=== PATIENT | female | born 2000 | race Caucasian/White ===

== ENCOUNTER 2025-02-20 13:21 | Inpatient (IN) | payer OTHER ==
[~2025-02-20] VITALS: Ht 167.6 cm; Wt 69.4 kg
[2025-02-20] MEDS ORDERED: IOHEXOL-350 100 ML VIAL IV ONE (14:37)
[2025-02-20] MEDS ORDERED: IV NS 0.9% 250 ML IV ONE (14:38)
[2025-02-20 14:57] LABS: PLATELET COUNT (AUTO) 205 K/uL (150-450); RED BLOOD CELL COUNT(AUTO) 2.82 MIL/uL (4.0-5.2); RED CELL DISTRIBUTION WIDTH 14.3 % (11.5-15.0); WHITE BLOOD COUNT (AUTO) 7.0 K/uL (4.3-11.0)
[2025-02-20] MEDS: IV NS 0.9% 1,000 ML BAG IV ONE (14:59)
[2025-02-20 15:05] LABS: CALCIUM, SERUM 8.0 mg/dL (8.5-10.1); CREATININE 0.6 mg/dL (0.6-1.3); SODIUM SERUM 139.0 mmol/L (136-145); UREA NITROGEN, BLOOD 8.0 mg/dL (7-18)
[2025-02-20 15:10] LABS: INR 1.04 (0.91-1.10)
[2025-02-20 15:16] LABS: PREGNANCY TEST SERUM QUAN 0 mIU/mL (0-6)
[2025-02-20 15:18] LABS: ALCOHOL, BLOOD < 3 mg/dL (0-10)
[2025-02-20 17:15] VITALS: BP 96/71; TEMP 97.5; O2SAT 99
[2025-02-20] MEDS ORDERED: BUPR1FIL SL (18:11)
[2025-02-20] MEDS ORDERED: FOLI0.4T6 PO (18:11)
[2025-02-20] MEDS ORDERED: MIRT-90 PO (18:11)
[2025-02-20] MEDS ORDERED: THIA100T88 PO (18:11)
[2025-02-20] MEDS ORDERED: ONDA-97 PO (18:11)
[2025-02-20] MEDS ORDERED: AMOX500C2 PO (18:11)
[2025-02-20] MEDS ORDERED: GABA300C PO (18:11)
[2025-02-20] MEDS ORDERED: DIAZ10TA4 PO (18:11)
[2025-02-20] MEDS ORDERED: ZIPR40CA2 PO (18:11)
[2025-02-20] MEDS ORDERED: MULT-31 PO (18:11)
[2025-02-20] MEDS ORDERED: IBUP-1955 PO (18:11)
[2025-02-20] MEDS ORDERED: FAMO20TA8 PO (18:11)
[2025-02-20] MEDS ORDERED: METF-440 PO (18:11)
[2025-02-20] MEDS ORDERED: QUET50TA PO (18:11)
[2025-02-20] MEDS ORDERED: NAPR-431 PO (18:11)
[2025-02-20] MEDS ORDERED: CYCL5TAB PO (18:11)
[2025-02-20] MEDS ORDERED: CLON0.1T PO (18:11)
[2025-02-20] MEDS ORDERED: CHLO473M5 PO (18:11)
[2025-02-20] MEDS ORDERED: FLUO20CA42 PO (18:11)
[2025-02-20] MEDS ORDERED: LOPE2CAP PO (18:11)
[2025-02-20] MEDS ORDERED: Z GUARD REMEDY 4 OZ OINT TP PRN (18:30)
[2025-02-20] MEDS ORDERED: ACETAMINOPHEN 325 MG TABLET PO PRN (18:30)
[2025-02-20] MEDS ORDERED: MAGNESIUM HYDROXIDE 30 ML UDC PO PRN (18:30)
[2025-02-20] MEDS ORDERED: MAG HYDROX/AL HYDROX/SIMETH 30 ML UDC PO PRN (18:30)
[2025-02-20] MEDS: ASPIRIN 81 MG TAB.CHEW PO SCH (19:26)
[2025-02-20] MEDS: IV 1/2NS 1000 ML 1,000 ML IV PRN (19:39)
[2025-02-20 20:00] VITALS: BP 100/67; TEMP 97.9; O2SAT 100
[2025-02-20] MEDS: ZIPRASIDONE 20 MG CAPSULE PO SCH (20:13)
[2025-02-20 22:40] LABS: APPEARANCE,URINE CLEAR (CLEAR); BLOOD, URINE NEGATIVE Ery/uL (NEGATIVE); LEUKOCYTE ESTERASE ,URINE NEGATIVE (NEGATIVE); NITRITE, URINE NEGATIVE (NEGATIVE); UGLUCOSE NEGATIVE (NEGATIVE)
[2025-02-20 23:18] LABS: AMPHETAMINE, URINE NEGATIVE (NEGATIVE); BARBITURATE, URINE NEGATIVE (NEGATIVE); BENZODIAZEPINE, URINE POSITIVE (NEGATIVE); CANNABINOID, URINE NEGATIVE (NEGATIVE); COCCAINE, URINE NEGATIVE (NEGATIVE); OPIATE, URINE NEGATIVE (NEGATIVE)
[2025-02-21] VITALS: BP 104/66; TEMP 98; O2SAT 95
[2025-02-21 04:00] VITALS: BP 98/71; TEMP 98.2; O2SAT 97
[2025-02-21 05:00] VITALS: BP 98/71; TEMP 98.2; O2SAT 97
[2025-02-21 06:37] LABS: PLATELET COUNT (AUTO) 215 K/uL (150-450); RED BLOOD CELL COUNT(AUTO) 3.02 MIL/uL (4.0-5.2); RED CELL DISTRIBUTION WIDTH 13.9 % (11.5-15.0); WHITE BLOOD COUNT (AUTO) 4.9 K/uL (4.3-11.0)
[2025-02-21 06:52] LABS: CALCIUM, SERUM 8.2 mg/dL (8.5-10.1); CREATININE 0.6 mg/dL (0.6-1.3); PHOSPHORUS 3.5 mg/dL (2.5-4.9); SODIUM SERUM 142.0 mmol/L (136-145); UREA NITROGEN, BLOOD 7.0 mg/dL (7-18)
[2025-02-21 07:30] VITALS: BP 97/65; TEMP 97.9; O2SAT 93
[2025-02-21] MEDS: FLUOXETINE HCL 20 MG CAPSULE PO SCH (08:10)
[2025-02-21] MEDS: THIAMINE HCL 100 MG TABLET PO SCH (08:10)
[2025-02-21] MEDS: Magnesium 1GM/D5W 100ML PREMIX 100 ML IV SCH (08:10)
[2025-02-21] MEDS: METFORMIN 500 MG TABLET PO SCH (08:10)
[2025-02-21] MEDS: FOLIC ACID 1 MG TABLET PO SCH (08:10)
[2025-02-21 16:00] VITALS: BP 99/66; TEMP 98.1; O2SAT 96
[2025-02-21 20:00] VITALS: BP 92/54; TEMP 98.6; O2SAT 95
[2025-02-22] VITALS: BP 99/62; TEMP 98.1; O2SAT 95
[2025-02-22 05:00] VITALS: BP_SYST 132; BP_SYST 95; BP_DIAS 63; BP_DIAS 66; TEMP 97.8; TEMP 98.6; O2SAT 97; O2SAT 98
[2025-02-22 07:30] VITALS: BP 96/65; TEMP 98.4; O2SAT 96
[2025-02-23 04:06] LABS: CHLAMYDIA TRACHOMATIS NAA Negative (Negative); NEISSERIA GONORRHOEAE NAA Negative (Negative)
== END 2025-02-22 13:43 | DRG 69 ==
LOC: ER 13:35 → TELE 15:49
PROVIDERS: ADMIT Internal Medicine; ATTEND Internal Medicine
DX: G45.9 Transient cerebral ischemic attack, unspecified (principal); G92.9 Unspecified toxic encephalopathy; F41.9 Anxiety disorder, unspecified; Z79.84 Long term (current) use of oral hypoglycemic drugs; G56.32 Lesion of radial nerve, left upper limb; F10.10 Alcohol abuse, uncomplicated; Y90.0 Blood alcohol level of less than 20 mg/100 ml; D64.9 Anemia, unspecified; F20.9 Schizophrenia, unspecified; F32.A Depression, unspecified; Z79.899 Other long term (current) drug therapy; I10 Essential (primary) hypertension; R29.702 NIHSS score 2; L89.622 Pressure ulcer of left heel, stage 2; F19.10 Other psychoactive substance abuse, uncomplicated
CPT/HCPCS: 36415; 70450-TC; 70496-TC; 70498-TC; 70551-TC; 80048-TC; 82962-TC; 83735-TC; 84100-TC; 84443-TC; 84702-TC; 85025-TC; 85730-TC; 87491; 87591; A4223; G0378; G0480; J3475; J3490; J7030; J7050; Q9967